=== PATIENT | female | born 1990 | race Asian ===

== ENCOUNTER 2019-02-10 11:41 | Emergency (ER) | payer BC, OTHER ==
[~2019-02-10] VITALS: Ht 160 cm; Wt 56.7 kg
[2019-02-10 11:46] VITALS: BP 128/75
[2019-02-10] MEDS ORDERED: IBUPROFEN 400 MG TABLET ONE (12:03)
[2019-02-10] MEDS ORDERED: TDAP [DIPH/PERTUSSIS/TET] 0.5 ML VIAL IM ONE (12:04)
[2019-02-10] MEDS: IBUPROFEN 400 MG TABLET PO ONE (12:05)
[2019-02-10] MEDS: TDAP [DIPH/PERTUSSIS/TET] 0.5 ML VIAL IM ONE (13:05)
== END 2019-02-10 13:42 | disposition home or self-care (01) ==
LOC: ER 11:41
DX: S93.492A Sprain of other ligament of left ankle, initial encounter (principal); S70.312A Abrasion, left thigh, initial encounter; S60.312A Abrasion of left thumb, initial encounter; V49.49XA Driver injured in collision with other motor vehicles in traffic accident, initial encounter; Y93.89 Activity, other specified; Y92.488 Other paved roadways as the place of occurrence of the external cause; Y99.8 Other external cause status
CPT/HCPCS: 73610-TC; 84703-TC; 90715

== ENCOUNTER 2019-05-19 08:15 | Outpatient (CLI) | payer BC ==
[2019-05-19 09:00] LABS: BASOPHILS % (AUTO) 0.4 % (0.0-2.0); EOSINOPHILS % (AUTO) 1.2 % (0.0-6.0); HEMATOCRIT 39 % (33-45); HEMOGLOBIN 13.2 g/dL (11.5-14.8); LYMPHOCYTES # (AUTO) 1.4 /CMM (0.8-4.8); LYMPHOCYTES % (AUTO) 13.9 % (20.0-44.0); MEAN CORPUSCULAR HGB CONC 34 g/dl (31.0-36.0); MEAN CORPUSCULAR VOLUME 87 fL (82-100); MONOCYTES # (AUTO) 0.6 /CMM (0.1-1.30); MONOCYTES % (AUTO) 5.7 % (2.0-12.0); NEUTROPHILS # (AUTO) 7.9 /CMM (1.8-8.9); NEUTROPHILS % (AUTO) 78.8 % (43.0-81.0); PLATELET COUNT (AUTO) 359 /CMM (150-450); RED BLOOD CELL COUNT(AUTO) 4.46 MIL/uL (4.0-5.2); WHITE BLOOD COUNT (AUTO) 10.1 K/uL (4.3-11.0)
== END 2019-05-19 23:59 | disposition home or self-care (01) ==
LOC: LAB 08:15
PROVIDERS: ATTEND Obstetrics & Gynecology
DX: N91.0 Primary amenorrhea (principal); E84.9 Cystic fibrosis, unspecified; Q99.2 Fragile X chromosome; Z33.1 Pregnant state, incidental; Z20.2 Contact with and (suspected) exposure to infections with a predominantly sexual mode of transmission
CPT/HCPCS: 36415; 84443-TC; 85025-TC; 86592; 86765; 86803; 86850-TC; 87340

== ENCOUNTER 2019-10-24 08:28 | Outpatient (CLI) | payer BC ==
[2019-10-24 09:42] LABS: BASOPHILS % (AUTO) 0.3 % (0.0-2.0); EOSINOPHILS % (AUTO) 1.7 % (0.0-6.0); HEMATOCRIT 33 % (33-45); LYMPHOCYTES # (AUTO) 1.7 /CMM (0.8-4.8); LYMPHOCYTES % (AUTO) 14.8 % (20.0-44.0); MEAN CORPUSCULAR HGB CONC 33 g/dl (31.0-36.0); MEAN CORPUSCULAR VOLUME 86 fL (82-100); MONOCYTES # (AUTO) 0.9 /CMM (0.1-1.30); NEUTROPHILS # (AUTO) 8.4 /CMM (1.8-8.9); NEUTROPHILS % (AUTO) 75.2 % (43.0-81.0); PLATELET COUNT (AUTO) 354 /CMM (150-450); RED BLOOD CELL COUNT(AUTO) 3.86 MIL/uL (4.0-5.2); WHITE BLOOD COUNT (AUTO) 11.2 K/uL (4.3-11.0)
[2019-10-24 13:00] LABS: EOSINOPHILS % (MANUAL) 1 % (0-4); LYMPHOCYTES % (MANUAL) 10 % (16-48); MONOCYTES % (MANUAL) 13 % (0-11.0); NEUTROPHILS % (MANUAL) 76 (42-76)
== END 2019-10-24 23:59 | disposition home or self-care (01) ==
LOC: LAB 08:28
PROVIDERS: ATTEND Obstetrics & Gynecology
DX: Z33.1 Pregnant state, incidental (principal)
CPT/HCPCS: 36415; 82947-TC; 85025-TC

== ENCOUNTER 2019-11-04 08:54 | Outpatient (CLI) | payer BC ==
[2019-11-04 14:37] LABS: GLUCOSE FASTING 77 mg/dL (74-106)
== END 2019-11-04 23:59 | disposition home or self-care (01) ==
LOC: LAB 08:54
PROVIDERS: ATTEND Obstetrics & Gynecology
DX: Z33.1 Pregnant state, incidental (principal); R73.09 Other abnormal glucose
CPT/HCPCS: 36415; 82951-TC; 82952-TC